=== PATIENT | female | born 1980 | race Caucasian/White ===

== ENCOUNTER 2017-01-25 10:35 | Outpatient (CLI) | payer OTHER ==
[~2017-01-25] VITALS: Ht 160 cm; Wt 115.5 kg
[~2017-01-25 10:35] MED LIST: HYDROCODON-ACE1 EAC7 PO; LEXAPRO20 MG PO; LOESTRIN1 EACH PO; LORAZEPAM1 MG PO; LOSARTAN POTASS50 MG PO; MAXALT10 MG PO; VITAMIN D22000 UNIT PO; VITAMIN D250000 UNIT PO; WELLBUTRIN XL150 MG PO; ZOFRAN ODT4 MG PO
[2017-01-25 10:51] VITALS: BP 137/84
[2017-01-25] MEDS ORDERED: ASPIR 8181 M1 PO (11:17)
[2017-01-25] MEDS ORDERED: PRENATAL TABLE1 EAC3 PO (11:17)
[2017-01-25] MEDS ORDERED: ZANTAC150 MG PO (11:18)
[2017-01-30] MEDS ORDERED: BREAST PUMP MC ×2 (07:36→09:41)
[2017-01-30] MEDS ORDERED: PERCOCET 5/31 TABLET PO (09:43)
[2017-01-30] MEDS ORDERED: MOTRIN800 MG PO (09:43)
== END 2017-01-25 11:45 | disposition home or self-care (01) ==
LOC: LDRP-OP 10:35 → 2WEST 10:36 → LDRP-OP 02-20 14:35
DX: O36.8130 Decreased fetal movements, third trimester, not applicable or unspecified (principal); O09.513 Supervision of elderly primigravida, third trimester; O99.343 Other mental disorders complicating pregnancy, third trimester; F41.9 Anxiety disorder, unspecified; Z3A.40 40 weeks gestation of pregnancy
CPT/HCPCS: 59025; G0378